=== PATIENT | male | born 1970 | race Caucasian/White ===

== ENCOUNTER 2016-12-11 10:58 | Emergency (ER) | payer OTHER ==
--- NOTE | 2016-12-11 12:35 | ED Physician Documentation ---
Lower Extremity Problem - HISTORIAN Historian: patient - HPI Stated Complaint: Right Knee Pain Chief Complaint: Lower Extremity Problem Additional Information: Right knee pain since kneeling at work last week. Sudden onset of pain which wright scontinued at about the same intensity. Worse with kneeling. Points to tibial tuberosity. Concerened he may have foreign body. Works as a mechanical repair worker. - ROS CONST: no problems - PAST HX Past History: other (sep'd left shoulder, lawnmower vs foot injury) Allergies/Adverse Reactions: Allergies Allergy/AdvReac Type Severity Reaction Status Date / Time No Known Allergies Allergy Unverified 12/11/16 11:02 Home Medications: Ambulatory Orders Medication Instructions Recorded Sleeping Aid 12/11/16 - SOCIAL HX Smoking History: cigarettes (1 PPD x 30 years) Alcohol Use: other (Fifth/week) - FAMILY HX Family History: no significant history - VITAL SIGNS Vital Signs: Vital Signs Temp Pulse Resp BP Pulse Ox 97.1 F L 85 18 136/86 96 12/11/16 10:58 12/11/16 10:58 12/11/16 10:58 12/11/16 10:58 12/11/16 10:58 - REVIEWED ASSESSMENTS Nursing Assessment Reviewed: Yes Vitals Reviewed: Yes Progress - Progress Progress: Clinical history : knee pain Technique AP lateral sunrise FINDINGS: There is no fracture dislocation. No joint effusion is seen. Bone density appears normal. Small patellar marginal spurs are present. IMPRESSION: No acute pathology Electronically signed on Dec 11, 2016 12:26:00 PM CDT by: Mansoor Aguilar ED Results Lab/Radiology - Orders Orders: ED Orders Category Date Time Status KNEE 3 VIEWS [RAD] Stat Exams 12/11/16 Ordered Lower Extremity Problem - EXAM General Appearance: no distress Hips: bilateral hip: no evidence of injury Legs: bilateral: no evidence of injury Knees: right: bone tenderness (reports, over tibial tuberosity), bilateral: normal inspection, normal range of motion, no evidence of injury Ankle: bilateral: normal range of motion, no evidence of injury Foot: bilateral foot: no evidence of injury EENT: eye inspection normal, ENT inspection normal RESPIRATORY: no resp distress VASCULAR: no vascular compromise NEURO/PSYCH: CN's nml as tested, motor nml, sensation nml Discharge Clincal Impression: Right knee pain Qualifiers: Chronicity: acute Qualified Code(s): M25.561 - Pain in right knee Referrals: Primary Doctor,No [Primary Care Provider] - 2 Days Additional Instructions: Consider using knee pads. Ice to the sore knee for 30 minutes of each hour you are awake to reduce inflammation and pain. Home Medications: Ambulatory Orders Sleeping Aid 12/11/16 Condition: Good Disposition: 01 HOME, SELF-CARE Decision to Admit: NO Decision Time: 12:30
[2016-12-11 12:38] VITALS: BP 130/81
--- NOTE | 2016-12-11 14:16 | Diagnostic Imaging Report ---
[facility] [id number] [facility].[address] [id number] Report Submission Date: Dec 11, 2016 12:26:00 PM CDT Patient Study Name: SYLVIA HERNANDEZ Date: Dec 11, 2016 11:24:38 AM CDT Modality Type: CR Gender: M Description: LOWER EXTREMITY : 66 Institution: [facility] Physician [facility] SHERIDAN - ER Right knee three views Clinical history : knee pain Technique AP lateral sunrise FINDINGS: There is no fracture dislocation. No joint effusion is seen. Bone density appears normal. Small patellar marginal spurs are present. IMPRESSION: No acute pathology Electronically signed on Dec 11, 2016 12:26:00 PM CDT by: Mansoor OLSON
== END 2016-12-11 12:35 | disposition home or self-care (01) ==
LOC: ED 10:58
DX: M25.561 Pain in right knee (principal)
CPT/HCPCS: 73562; 99283